=== PATIENT | male | born 1960 | race African-American/Black ===

== ENCOUNTER 2018-07-28 22:19 | Inpatient (IN) | payer SELFPAY ==
[~2018-07-28] VITALS: Ht 195.6 cm; Wt 118.8 kg
[2018-07-28] MEDS ORDERED: LABETALOL 5MG/ML SYR 20 MG/4 ML SYRINGE IV ONE (22:30)
[2018-07-28 22:39] LABS: BASOPHILS % 0.8 % (0.0-2.0); EOSINOPHILS % 1.4 % (0.0-5.0); HEMATOCRIT. 46.7 % (42.0-52.0); HEMOGLOBIN. 15.6 g/dL (14.0-18.0); MEAN PLATELET VOLUME 11.6 fl (7.4-10.4); MONOCYTES % 8.2 % (2.0-8.0); NEUTROPHILS % 58.6 % (40.0-76.0); PLATELET 129 x1000/uL (130-400); RED BLOOD CELL COUNT 4.87 mill/uL (4.7-6.1); RED CELL DISTRIBUTION WIDTH 13.5 % (11.6-14.6)
[2018-07-28 22:43] LABS: CHLORIDE 102 mEq/L (98-107)
[2018-07-28 22:46] LABS: PROTHROMBIN TIME 10.3 sec (9.1-11.1)
[2018-07-28 22:47] LABS: ETHANOL BLOOD < 10 mg/dL
[2018-07-28 22:50] LABS: LDL CHOLESTEROL 128 mg/dL (5-100)
[2018-07-28] MEDS ORDERED: ASPIRIN 325MG EC TABLET PO ONE (23:15)
[2018-07-29] VITALS (7 sets, daily range): BP systolic 120–178; BP diastolic 81–111
[2018-07-29] MEDS ORDERED: LORAZEPAM 2MG/ML CPJ IV PRN (00:15)
[2018-07-29] MEDS ORDERED: ONDANSETRON HCL 4MG/2ML INJ IV PRN (00:15)
[2018-07-29] MEDS ORDERED: HYDROCODONE/ACETAMINOPHEN 5/325MG TABLET PO PRN (00:15)
[2018-07-29] MEDS ORDERED: IPRATROPIUM/ALBUTEROL 0.5-3(2.5)MG/3ML NEB INH PRN (00:15)
[2018-07-29] MEDS ORDERED: DOCUSATE SODIUM 100MG CAPSULE PO PRN (00:15)
[2018-07-29] MEDS ORDERED: MAGNESIUM/ALUMINUM HYDROXIDE/SIMETHICONE 30ML UDC PO PRN (00:15)
[2018-07-29] MEDS ORDERED: DIPHENHYDRAMINE 50MG/ML VIAL IV PRN (00:15)
[2018-07-29] MEDS ORDERED: NA PHOS,M-B/NA PHOS,DI-BA ENEMA 118ML PR PRN (00:15)
[2018-07-29] MEDS ORDERED: MORPHINE SULFATE 4 MG/ML CPJ (NOT FOR IM USE) IV PRN (00:15)
[2018-07-29] MEDS ORDERED: ACETAMINOPHEN 325MG TABLET PO PRN (00:15)
[2018-07-29] MEDS ORDERED: GUAIFENESIN 200MG/10ML SUGAR FREE UDC PO PRN (00:15)
[2018-07-29] MEDS ORDERED: CLONIDINE 0.1MG TABLET PO PRN (00:15)
[2018-07-29 00:31] LABS: CLARITY URINE CLEAR (CLEAR); COLOR URINE YELLOW (YELLOW); KETONES URINE NEGATIVE (NEGATIVE); LEUKOCYTE ESTERASE URINE NEGATIVE (NEGATIVE); NITRITE URINE NEGATIVE (NEGATIVE); OCCULT BLOOD URINE NEGATIVE (NEGATIVE); PROTEIN URINE NEGATIVE (NEGATIVE); SPECIFIC GRAVITY URINE 1.014 (1.005-1.030)
[2018-07-29 00:44] LABS: *AMPHETAMINES SCREEN URINE NEGATIVE (NEGATIVE)
[2018-07-29 00:45] LABS: *BARBITURATES SCREEN URINE NEGATIVE (NEGATIVE); *BENZODIAZEPINES SCREEN URINE NEGATIVE (NEGATIVE); *COCAINE SCREEN URINE NEGATIVE (NEGATIVE); CANNABINOID URINE SCREEN NEGATIVE (NEGATIVE); METHADONE URINE SCREEN NEGATIVE (NEGATIVE); OPIATES URINE SCREEN NEGATIVE (NEGATIVE); PHENCYCLIDINE URINE SCREEN NEGATIVE (NEGATIVE)
[2018-07-29 02:15] LABS: CHLORIDE 102 mEq/L (98-107)
[2018-07-29] MEDS ORDERED: IOHEXOL-350 100 ML BOTTLE ONE (02:55)
[2018-07-29] MEDS: ENOXAPARIN 40MG/0.4ML SYR SUBCUT SCH (09:00)
[2018-07-29] MEDS: ASPIRIN 81MG EC TABLET PO SCH (09:06)
[2018-07-29] MEDS: METOPROLOL TARTRATE 25MG TABLET PO SCH ×2 (09:07→21:25)
[2018-07-29] MEDS: AMLODIPINE 10MG TABLET PO SCH (09:07)
[2018-07-29] MEDS: LISINOPRIL 20MG TABLET PO SCH (09:08)
[2018-07-29] MEDS ORDERED: DEXTROSE 50% WATER 50ML SYRINGE IV PRN (11:00)
[2018-07-29] MEDS: BLOOD SUGAR DIAGNOSTIC STRIP TEST SCH ×3 (12:25→21:19)
[2018-07-29] MEDS ORDERED: AMLO10TA4 PO (12:54)
[2018-07-29] MEDS ORDERED: ASPI-1158 PO (12:54)
[2018-07-29] MEDS ORDERED: AMLO10TA80 PO (12:54)
[2018-07-29] MEDS ORDERED: HYDR-2510 PO (12:54)
[2018-07-29] MEDS ORDERED: LOSA50TA20 PO (12:54)
[2018-07-29] MEDS: INSULIN LISPRO 100 UNITS/ML SUBCUT SCH ×3 (13:02→21:26)
[2018-07-29] MEDS ORDERED: POTASSIUM CHLORIDE 20MEQ TABLET SR PO NR (20:30)
[2018-07-29] MEDS ORDERED: ATORVASTATIN CALCIUM 40MG TABLET PO SCH (21:00)
[2018-07-30] VITALS: BP 136/88
[2018-07-30 04:00] VITALS: BP 139/85
[2018-07-30] MEDS: INSULIN LISPRO 100 UNITS/ML SUBCUT SCH ×2 (07:16→11:53)
[2018-07-30] MEDS: BLOOD SUGAR DIAGNOSTIC STRIP TEST SCH ×2 (07:17→11:49)
[2018-07-30 08:00] VITALS: BP 149/97
[2018-07-30 08:21] LABS: BASOPHILS % 0.6 % (0.0-2.0); EOSINOPHILS % 1.6 % (0.0-5.0); HEMATOCRIT. 44.3 % (42.0-52.0); HEMOGLOBIN. 14.7 g/dL (14.0-18.0); LYMPHOCYTES % 30.4 % (20.0-50.0); MEAN CORPUSCULAR HEMOGLOBIN 31.7 pg (28.0-32.0); MEAN CORPUSCULAR VOLUME 95.2 fL (80.0-94.0); MEAN PLATELET VOLUME 11.9 fl (7.4-10.4); MONOCYTES % 9.1 % (2.0-8.0); NEUTROPHILS % 58.3 % (40.0-76.0); PLATELET 125 x1000/uL (130-400); RED BLOOD CELL COUNT 4.65 mill/uL (4.7-6.1); RED CELL DISTRIBUTION WIDTH 13.4 % (11.6-14.6)
[2018-07-30 09:00] LABS: CHLORIDE 106 mEq/L (98-107)
[2018-07-30] MEDS: ENOXAPARIN 40MG/0.4ML SYR SUBCUT SCH (09:00)
[2018-07-30 09:19] LABS: LDL CHOLESTEROL 112 mg/dL (5-100)
[2018-07-30 09:21] LABS: HDL CHOLESTEROL 32 mg/dL (40-59)
[2018-07-30] MEDS: METOPROLOL TARTRATE 25MG TABLET PO SCH (09:41)
[2018-07-30] MEDS: AMLODIPINE 10MG TABLET PO SCH (09:42)
[2018-07-30] MEDS: ASPIRIN 81MG EC TABLET PO SCH (09:42)
[2018-07-30] MEDS: LISINOPRIL 20MG TABLET PO SCH (09:42)
[2018-07-30 12:00] VITALS: BP 120/86
[2018-07-30 15:27] VITALS: BP 120/86
[2018-07-30] MEDS ORDERED: ENOXAPARIN 30MG/0.3ML SYR SUBCUT SCH (21:00)
== END 2018-07-30 18:30 | disposition home or self-care (01) | DRG 199 ==
LOC: ER 22:19 → 5WST 23:53 → EDBEDREQSVC 23:57 → EDBEDREQ 23:57 → EDBEDREQTM 23:57 → ENRESERV 07-29 04:45
PROVIDERS: ADMIT Internal Medicine; ATTEND Internal Medicine
DX: I16.1 Hypertensive emergency (principal); G93.41 Metabolic encephalopathy; E46 Unspecified protein-calorie malnutrition; I65.1 Occlusion and stenosis of basilar artery; E11.9 Type 2 diabetes mellitus without complications; I10 Essential (primary) hypertension; E78.5 Hyperlipidemia, unspecified; Z68.31 Body mass index [BMI] 31.0-31.9, adult
CPT/HCPCS: 36415; 70496; 71045; 80048; 80061; 80305; 82962; 83721; 83880; 84439; 84443; 84484; 92610; 93005; 93306; 93970; 96374; 97162; 99291; G0482; J1650; J1815; J3490; Q9967

== ENCOUNTER 2020-03-29 09:56 | Inpatient (IN) | payer MEDICAID ==
[~2020-03-29] VITALS: Ht 223.5 cm; Wt 90.9 kg
[~2020-03-29 09:56] MED LIST: AMLO10TA4 PO; AMLO10TA80 MT; ASPI-1158 PO; ATOR20TA PO; CLOP75TA15 PO; HYDR-2510 PO; LOSA50TA41 PO; METF500T PO
[2020-03-29] MEDS ORDERED: SODIUM CHLORIDE 0.9% 1,000 ML IV ONE (10:15)
[2020-03-29 10:40] LABS: BASOPHILS % 0.6 % (0.0-2.0); EOSINOPHILS % 1.8 % (0.0-5.0); HEMATOCRIT. 41.8 % (42.0-52.0); HEMOGLOBIN. 13.8 g/dL (14.0-18.0); LYMPHOCYTES % 28.9 % (20.0-50.0); MEAN CORPUSCULAR HEMOGLOBIN 31.7 pg (28.0-32.0); MEAN CORPUSCULAR VOLUME 95.9 fL (80.0-94.0); MEAN PLATELET VOLUME 10.4 fl (7.4-10.4); MONOCYTES % 7.2 % (2.0-8.0); NEUTROPHILS % 61.5 % (40.0-76.0); PLATELET 168 x1000/uL (130-400); RED BLOOD CELL COUNT 4.36 mill/uL (4.7-6.1); RED CELL DISTRIBUTION WIDTH 12.8 % (11.6-14.6)
[2020-03-29 10:49] LABS: CHLORIDE 109 mEq/L (98-107); INR 1.1; PROTHROMBIN TIME 11.3 sec (9.6-11.0)
[2020-03-29 10:57] LABS: ETHANOL BLOOD < 10 mg/dL
[2020-03-29 10:59] LABS: LDL CHOLESTEROL 115 mg/dL (5-100)
[2020-03-29 11:00] LABS: CREATINE KINASE 285 IU/L (39-308)
[2020-03-29] MEDS ORDERED: ASPIRIN 81MG TABLET PO ONE (13:45)
[2020-03-29] MEDS ORDERED: POTASSIUM CHLORIDE 20MEQ TABLET SR PO ONE (13:45)
[2020-03-29 14:00] LABS: CLARITY URINE CLOUDY (CLEAR); COLOR URINE YELLOW (YELLOW); KETONES URINE 2+ (NEGATIVE); LEUKOCYTE ESTERASE URINE NEGATIVE (NEGATIVE); NITRITE URINE NEGATIVE (NEGATIVE); OCCULT BLOOD URINE NEGATIVE (NEGATIVE); PROTEIN URINE NEGATIVE (NEGATIVE); SPECIFIC GRAVITY URINE 1.015 (1.005-1.030)
[2020-03-29 14:15] LABS: *AMPHETAMINES SCREEN URINE NEGATIVE (NEGATIVE)
[2020-03-29 14:16] LABS: *BARBITURATES SCREEN URINE NEGATIVE (NEGATIVE); *BENZODIAZEPINES SCREEN URINE NEGATIVE (NEGATIVE); *COCAINE SCREEN URINE NEGATIVE (NEGATIVE); METHADONE URINE SCREEN NEGATIVE (NEGATIVE); OPIATES URINE SCREEN NEGATIVE (NEGATIVE); PHENCYCLIDINE URINE SCREEN NEGATIVE (NEGATIVE)
[2020-03-29 14:17] LABS: CANNABINOID URINE SCREEN NEGATIVE (NEGATIVE)
[2020-03-29] MEDS ORDERED: MAGNESIUM HYDROXIDE 400MG/5ML 30ML UDC PO PRN (18:15)
[2020-03-29] MEDS: ENOXAPARIN 40MG/0.4ML SYR SUBCUT SCH (18:15)
[2020-03-29] MEDS ORDERED: ACETAMINOPHEN 325MG TABLET PO PRN ×2 (18:15)
[2020-03-29] MEDS ORDERED: DIPHENHYDRAMINE 50MG/ML VIAL IV PRN (18:15)
[2020-03-29] MEDS ORDERED: MAGNESIUM/ALUMINUM HYDROXIDE/SIMETHICONE 30ML UDC PO PRN (18:15)
[2020-03-29] MEDS ORDERED: ONDANSETRON HCL 4MG/2ML INJ IV PRN (18:15)
[2020-03-29] MEDS ORDERED: DEXTROSE 50% WATER 50ML SYRINGE IV PRN (18:15)
[2020-03-29] MEDS: BLOOD SUGAR DIAGNOSTIC STRIP TEST SCH ×2 (18:41→20:36)
[2020-03-29] MEDS: INSULIN LISPRO 100 UNITS/ML SUBCUT SCH ×2 (18:41→20:36)
[2020-03-29 20:00] VITALS: BP 166/92
[2020-03-29 20:02] VITALS: BP 166/92
[2020-03-29] MEDS: CLONIDINE 0.1MG TABLET PO PRN (21:42)
[2020-03-29] MEDS: ATORVASTATIN CALCIUM 40MG TABLET PO SCH (21:42)
[2020-03-29] MEDS: FAMOTIDINE 20MG TABLET PO SCH (21:42)
[2020-03-29] MEDS: SODIUM CHLORIDE 0.9% INJ 3ML FLUSH IVF SCH (21:43)
[2020-03-29] MEDS: POTASSIUM CHLORIDE 20MEQ TABLET SR PO NR ×2 (22:46→22:58)
[2020-03-30] VITALS: BP 130/80
[2020-03-30 04:00] VITALS: BP 137/85
[2020-03-30] MEDS: SODIUM CHLORIDE 0.9% INJ 3ML FLUSH IVF SCH ×3 (06:35→21:28)
[2020-03-30] MEDS: BLOOD SUGAR DIAGNOSTIC STRIP TEST SCH ×4 (06:35→20:41)
[2020-03-30] MEDS: INSULIN LISPRO 100 UNITS/ML SUBCUT SCH ×4 (06:35→20:40)
[2020-03-30 08:00] VITALS: BP 149/88
[2020-03-30] MEDS: ASPIRIN 81MG EC TABLET PO SCH (08:22)
[2020-03-30 12:00] VITALS: BP 143/91
[2020-03-30] MEDS ORDERED: LORAZEPAM 2MG/ML CPJ IV SCH (15:20)
[2020-03-30 16:00] VITALS: BP 155/95
[2020-03-30] MEDS: POTASSIUM CHLORIDE 20MEQ TABLET SR PO SCH (17:12)
[2020-03-30] MEDS: ENOXAPARIN 40MG/0.4ML SYR SUBCUT SCH (17:12)
[2020-03-30 20:00] VITALS: BP 151/99
[2020-03-30] MEDS: ATORVASTATIN CALCIUM 40MG TABLET PO SCH (20:38)
[2020-03-30] MEDS: FAMOTIDINE 20MG TABLET PO SCH (20:38)
[2020-03-30] MEDS: CLONIDINE 0.1MG TABLET PO PRN (20:43)
[2020-03-31] VITALS: BP 155/89
[2020-03-31 04:00] VITALS: BP 156/97
[2020-03-31] MEDS: SODIUM CHLORIDE 0.9% INJ 3ML FLUSH IVF SCH ×3 (05:49→21:07)
[2020-03-31] MEDS: CLONIDINE 0.1MG TABLET PO PRN ×4 (05:49→23:43)
[2020-03-31] MEDS: INSULIN LISPRO 100 UNITS/ML SUBCUT SCH ×4 (06:25→21:00)
[2020-03-31] MEDS: BLOOD SUGAR DIAGNOSTIC STRIP TEST SCH ×4 (06:25→21:07)
[2020-03-31 08:00] VITALS: BP 156/96
[2020-03-31] MEDS: ASPIRIN 81MG EC TABLET PO SCH (08:28)
[2020-03-31] MEDS: POTASSIUM CHLORIDE 20MEQ TABLET SR PO SCH ×2 (08:28→16:53)
[2020-03-31 12:00] VITALS: BP 148/84
[2020-03-31 16:00] VITALS: BP 154/94
[2020-03-31] MEDS: ENOXAPARIN 40MG/0.4ML SYR SUBCUT SCH (17:19)
[2020-03-31 20:00] VITALS: BP 176/107
[2020-03-31] MEDS: FAMOTIDINE 20MG TABLET PO SCH (21:06)
[2020-03-31] MEDS: ATORVASTATIN CALCIUM 40MG TABLET PO SCH (21:07)
[2020-03-31] MEDS: AMLODIPINE 5MG TABLET PO SCH (21:07)
[2020-03-31] MEDS ORDERED: QUETIAPINE FUMARATE 50MG TABLET PO SCH (21:30)
[2020-04-01] VITALS: BP 150/92
[2020-04-01 04:00] VITALS: BP 134/79
[2020-04-01] MEDS: INSULIN LISPRO 100 UNITS/ML SUBCUT SCH ×2 (06:16→12:15)
[2020-04-01] MEDS: SODIUM CHLORIDE 0.9% INJ 3ML FLUSH IVF SCH ×2 (06:16→15:05)
[2020-04-01] MEDS: BLOOD SUGAR DIAGNOSTIC STRIP TEST SCH ×2 (06:16→12:36)
[2020-04-01 08:00] VITALS: BP 159/93
[2020-04-01] MEDS: ASPIRIN 81MG EC TABLET PO SCH (08:45)
[2020-04-01] MEDS: AMLODIPINE 5MG TABLET PO SCH (08:45)
[2020-04-01] MEDS: POTASSIUM CHLORIDE 20MEQ TABLET SR PO SCH (08:45)
[2020-04-01 12:00] VITALS: BP 153/92
[2020-04-01 14:06] VITALS: BP 153/92
== END 2020-04-01 15:10 | disposition home health service (06) | DRG 45 ==
LOC: ER 09:56 → EDBEDREQ 10:21 → EDBEDREQSVC 11:57 → EDBEDREQ 11:57 → EDBEDREQTM 11:57 → ENRESERV 19:04 → 5WST 19:59
PROVIDERS: ADMIT Internal Medicine; ATTEND Internal Medicine
DX: I63.512 Cerebral infarction due to unspecified occlusion or stenosis of left middle cerebral artery (principal); R47.01 Aphasia; I10 Essential (primary) hypertension; E11.9 Type 2 diabetes mellitus without complications; E87.6 Hypokalemia; E78.00 Pure hypercholesterolemia, unspecified; I49.3 Ventricular premature depolarization; E78.5 Hyperlipidemia, unspecified; Z79.899 Other long term (current) drug therapy; Z79.82 Long term (current) use of aspirin; Z82.49 Family history of ischemic heart disease and other diseases of the circulatory system; Z91.011 Allergy to milk products
CPT/HCPCS: 36415; 70551; 71045; 80051; 80053; 80061; 80305; 80320; 81003; 82550; 82962; 83036; 83721; 83735; 83880; 84443; 84484; 85025; 93005; 93306; 97162; 97166; 99285; J1650; J1815; J2060; J7030; G0480

== ENCOUNTER 2021-03-06 17:26 | Emergency (ER) | payer MEDICAID ==
[~2021-03-06] VITALS: Ht 188 cm; Wt 81.0 kg
[~2021-03-06 17:26] MED LIST changes: -ASPI-1158 PO; +ASPI-1406 PO; -HYDR-2510 PO; +HYDR50TA PO
[2021-03-06 19:15] LABS: BASOPHILS % 0.5 % (0.0-2.0); EOSINOPHILS % 0.3 % (0.0-5.0); HEMATOCRIT. 43.5 % (42.0-52.0); HEMOGLOBIN. 14.8 g/dL (14.0-18.0); LYMPHOCYTES % 11.5 % (20.0-50.0); MEAN CORPUSCULAR HEMOGLOBIN 31.7 pg (28.0-32.0); MEAN CORPUSCULAR VOLUME 93.4 fL (80.0-94.0); MEAN PLATELET VOLUME 10.5 fl (7.4-10.4); MONOCYTES % 4.1 % (2.0-8.0); NEUTROPHILS % 83.6 % (40.0-76.0); PLATELET 163 x1000/uL (130-400); RED BLOOD CELL COUNT 4.66 mill/uL (4.7-6.1); RED CELL DISTRIBUTION WIDTH 12.8 % (11.6-14.6)
[2021-03-06 19:20] LABS: CHLORIDE 107 mEq/L (98-107)
[2021-03-06 19:24] LABS: ETHANOL BLOOD < 10 mg/dL
[2021-03-07 02:56] LABS: CLARITY URINE CLEAR (CLEAR); COLOR URINE DARK YELLOW (YELLOW); KETONES URINE TRACE (NEGATIVE); LEUKOCYTE ESTERASE URINE NEGATIVE (NEGATIVE); NITRITE URINE NEGATIVE (NEGATIVE); OCCULT BLOOD URINE NEGATIVE (NEGATIVE); PROTEIN URINE 2+ (NEGATIVE); SPECIFIC GRAVITY URINE 1.026 (1.005-1.030)
[2021-03-07 03:05] LABS: *BARBITURATES SCREEN URINE NEGATIVE (NEGATIVE)
[2021-03-07 03:06] LABS: *AMPHETAMINES SCREEN URINE NEGATIVE (NEGATIVE); *BENZODIAZEPINES SCREEN URINE NEGATIVE (NEGATIVE); *COCAINE SCREEN URINE NEGATIVE (NEGATIVE); METHADONE URINE SCREEN NEGATIVE (NEGATIVE); OPIATES URINE SCREEN NEGATIVE (NEGATIVE)
[2021-03-07 03:07] LABS: CANNABINOID URINE SCREEN NEGATIVE (NEGATIVE); PHENCYCLIDINE URINE SCREEN NEGATIVE (NEGATIVE)
[2021-03-07] MEDS ORDERED: OLANZAPINE 10 MG/VIAL IM ONE (19:15)
[2021-03-10 10:57] VITALS: BP 137/86
== END 2021-03-10 11:09 | disposition home or self-care (01) ==
LOC: ER 17:26
DX: R45.851 Suicidal ideations (principal); Z20.822 Contact with and (suspected) exposure to COVID-19
CPT/HCPCS: 36415; 80053; 80307; 80320; 80329; 82962; 85025; 99285; C9803; J3490; U0003; U0005; G0480